=== PATIENT | male | born 1955 | race Caucasian/White ===

== ENCOUNTER 2023-07-27 10:54 | Outpatient (CLI) | payer OTHER ==
[2023-07-27 13:08] LABS: Hemoglobin 15.3 g/dL (13.5-17.5); Mean Corpuscular Hemoglobin 31.8 pg (27.0-33.0); Mean Corpuscular Volume 93.6 fl (81.2-95.1); Mean Platelet Volume 9.7 fl (7.4-10.4); Platelet Count 259 10x3/uL (150-450); RBC Distribution Width 12.3 % (11.5-14.5); Red Blood Cell (RBC) Count 4.81 10x6/uL (4.32-5.72); White Blood Cell (WBC) Count 8.5 10x3/uL (3.5-10.5)
[2023-07-27 13:17] LABS: Prothrombin Time 10.5 sec (9.5-12.1)
[2023-07-27 13:20] LABS: Anion Gap 15 mmol/L (10-20); BUN (Urea Nitrogen) 12 mg/dL (8.4-25.7); Calc. Creatinine Clearance 0 mL/min (70-130); Calcium 9.6 mg/dL (7.8-10.44); Carbon Dioxide 24 mmol/L (23-31); Chloride 100 mmol/L (98-107); Estimated GFR 100; Glucose 97 mg/dL (80-115); Potassium 4.1 mmol/L (3.5-5.1); Sodium 135 mmol/L (136-145)
== END 2023-07-27 10:55 | disposition home or self-care (01) ==
LOC: LABBT 10:54
PROVIDERS: ATTEND Neurological Surgery
DX: Z01.818 Encounter for other preprocedural examination (principal); M50.21 Other cervical disc displacement, high cervical region
CPT/HCPCS: 80048; 85027; 85610; 85730; 93005; 93010

== ENCOUNTER 2023-07-30 10:16 | Day surgery (SDC) | payer OTHER ==
[2023-07-27 11:37] VITALS: BMI 39.1
[2023-07-30] MEDS ORDERED: Thrombin 5000 UNITS/5 ML VIAL ONE (10:44)
[2023-07-30] MEDS ORDERED: Vancomycin 1 GM VIAL ONE (10:44)
[2023-07-30] MEDS ORDERED: HYDROmorphone 0.5 MG/0.5 ML SYRINGE ONE ×3 (11:49→17:29)
[2023-07-30] MEDS ORDERED: Fentanyl 250 MCG/5 ML VIAL ONE (11:49)
[2023-07-30] MEDS ORDERED: SUGAMMADEX SODIUM 200 MG/2 ML VIAL ONE (11:49)
[2023-07-30] MEDS ORDERED: LevoFLOXacin 500 mg/D5W 100 ML BAG ONE (11:51)
[2023-07-30] MEDS ORDERED: Clindamycin/D5W 900 mg/50 ml Premix Bag ONE (11:51)
[2023-07-30] MEDS ORDERED: Dexamethasone 20 MG/5 ML VIAL ONE (12:20)
[2023-07-30] MEDS ORDERED: ePHEDrine Sulfate 50 MG/10 ML VIAL ONE (12:20)
[2023-07-30] MEDS ORDERED: Lidocaine 1% PF 5 ML VIAL ONE (12:20)
[2023-07-30] MEDS ORDERED: Glycopyrrolate 0.2 MG/ML 5 ML SYRINGE ONE (12:20)
[2023-07-30] MEDS ORDERED: PROPOFOL 200 MG/20 ML VIAL ONE (12:20)
[2023-07-30] MEDS ORDERED: Rocuronium Bromide 10 MG/ML (10ML VIAL) ONE (12:20)
[2023-07-30] MEDS ORDERED: NEOSTIGMINE 3 MG/3 ML SYR 3 MG/3 ML SYRINGE ONE (12:20)
[2023-07-30] MEDS ORDERED: Ondansetron PF 4 MG/2 ML Vial ONE (12:20)
[2023-07-30] MEDS ORDERED: Phenylephrine 10 MG/ML VIAL ONE (12:41)
[2023-07-30] MEDS ORDERED: fentaNYL 50 mcg/mL 1 mL Vial ONE ×3 (16:05→17:06)
[2023-07-30] MEDS ORDERED: HYDROcodone/Acetaminophen 7.5/325 mg Tablet ONE (18:37)
[2023-07-30] MEDS ORDERED: HYDROcodone/Acetaminophen 7.5/325 mg Tablet PO PRN ×2 (19:05)
[2023-07-30] MEDS ORDERED: Morphine 2 MG/ML VIAL SLOW IVP PRN (19:07)
[2023-07-30] MEDS ORDERED: Morphine 4 MG/ML VIAL SLOW IVP PRN (19:07)
[2023-07-30] MEDS ORDERED: Cyclobenzaprine 10 MG TAB PO PRN (19:08)
[2023-07-30] MEDS ORDERED: diphenhydrAMINE 50 MG/ML VIAL IVP PRN (19:09)
[2023-07-30] MEDS ORDERED: diphenhydrAMINE 25 MG CAP PO PRN (19:09)
[2023-07-30] MEDS ORDERED: Ondansetron PF 4 MG/2 ML Vial IVP PRN (19:10)
[2023-07-30] MEDS ORDERED: Sodium Chloride 0.9% 1,000 ML IV SCH (19:15)
[2023-07-31] MEDS ORDERED: Tamsulosin HCl 0.4 MG CAP PO SCH (06:00)
== END 2023-07-30 20:15 | disposition home or self-care (01) ==
LOC: SDC 10:16
PROVIDERS: ATTEND Neurological Surgery
PROC: 0RG20A0 Fusion of 2 or more Cervical Vertebral Joints with Interbody Fusion Device, Anterior Approach, Anterior Column, Open Approach (ICD-10-PCS; principal; 2023-07-30)
DX: M54.12 Radiculopathy, cervical region (principal); M47.12 Other spondylosis with myelopathy, cervical region; E78.00 Pure hypercholesterolemia, unspecified; M19.90 Unspecified osteoarthritis, unspecified site; I10 Essential (primary) hypertension; G89.29 Other chronic pain; Z79.899 Other long term (current) drug therapy; Z96.651 Presence of right artificial knee joint; Z98.890 Other specified postprocedural states; Z88.8 Allergy status to other drugs, medicaments and biological substances; Z88.0 Allergy status to penicillin; M47.22 Other spondylosis with radiculopathy, cervical region
CPT/HCPCS: C1713; J1100; J1170; J1956; J2370; J2405; J2704; J3010; J3370; J3490